=== PATIENT | male | born 1990 | race Caucasian/White ===

== ENCOUNTER 2022-02-05 10:58 | Emergency (ER) | payer BC, MEDICAID ==
[2022-02-05] MEDS ORDERED: Azithromycin 250 MG Tab ONE (12:30)
== END 2022-02-05 12:33 | disposition home or self-care (01) ==
LOC: LB.ED 10:58
DX: J02.9 Acute pharyngitis, unspecified (principal); Z88.0 Allergy status to penicillin; Z20.822 Contact with and (suspected) exposure to COVID-19
CPT/HCPCS: 99283; A9270-GY; U0002